=== PATIENT | male | born 1970 ===

== ENCOUNTER 2022-12-10 15:46 | Inpatient (IN) | payer OTHER ==
[~2022-12-10] VITALS: Ht 175.3 cm; Wt 101.1 kg
[2022-12-10 17:50] LABS: BASOPHILS ABSOLUTE AUTO 0.05 K/mm3 (0.00-0.23); BASOPHILS PERCENT AUTO 1 % (0-2); EOSINOPHILS ABSOLUTE AUTO 0.25 K/mm3 (0.00-0.68); EOSINOPHILS PERCENT AUTO 3 % (0-6); Hematocrit 48.2 % (37.0-53.0); Hemoglobin 16.8 g/dL (13.5-17.5); IMMATURE GRAN ABSOLUTE AUTO 0.03 K/mm3 (0.00-0.10); IMMATURE GRAN PERCENT AUTO 0 % (0-1); LYMPHOCYTES ABSOLUTE AUTO 1.87 K/mm3 (0.84-5.20); LYMPHOCYTES PERCENT AUTO 24 % (21-46); MONOCYTES ABSOLUTE AUTO 0.64 K/mm3 (0.16-1.47); MONOCYTES PERCENT AUTO 8 % (4-13); Mean Corpuscular HGB 31.1 pg (26.0-34.0); Mean Corpuscular HGB Conc 34.9 g/dL (31.5-36.5); Mean Corpuscular Volume 89 fL (80-100); Mean Platelet Volume 10.3 fL (9.1-12.4); NEUTROPHILS ABSOLUTE AUTO 5.03 K/mm3 (1.96-9.15); NEUTROPHILS PERCENT AUTO 64 % (41-73); Platelet Count 256 K/mm3 (150-400); RDW Coefficient Variation 12.9 % (11.7-14.2); RDW Standard Deviation 42.5 fL (35.1-46.3); Red Blood Cell Count 5.41 M/mm3 (4.30-5.90); White Blood Cell Count 7.87 K/mm3 (4.00-11.30)
[2022-12-10 18:16] LABS: Albumin, Blood 3.9 g/dL (3.4-5.0); Albumin/Globulin Ratio 0.9 (0.8-1.8); Bilirubin, Total 0.6 mg/dL (0.1-1.0); Bun/Creatinine Ratio 14.2 (12.0-20.0); Calcium, Blood 9.6 mg/dL (8.5-10.1); Creatinine, Blood 0.85 mg/dL (0.60-1.20); Globulin, Blood 4.2 g/dL (2.2-4.0); Potassium, Blood 4.5 mmol/L (3.5-5.5); Total Protein, Blood 8.1 g/dL (6.4-8.2)
[2022-12-10] MEDS ORDERED: IBUP800 PO (19:57)
[2022-12-10] MEDS ORDERED: SULFAMETHOXAZO1 EAC1 PO (19:58)
--- NOTE | 2022-12-10 21:13 | NUR ---
REPORT RECIEVED FROM KLAUDIA (INSPECTOR FINISHING) AND AWAITING PT T/F TO ROOM 311.
[2022-12-10 21:51] VITALS: BP 135/85
[2022-12-11 05:00] VITALS: BP 121/84
[2022-12-11 05:16] LABS: BASOPHILS ABSOLUTE AUTO 0.05 K/mm3 (0.00-0.23); BASOPHILS PERCENT AUTO 1 % (0-2); EOSINOPHILS ABSOLUTE AUTO 0.32 K/mm3 (0.00-0.68); EOSINOPHILS PERCENT AUTO 4 % (0-6); Hematocrit 43.7 % (37.0-53.0); Hemoglobin 15.4 g/dL (13.5-17.5); IMMATURE GRAN ABSOLUTE AUTO 0.04 K/mm3 (0.00-0.10); IMMATURE GRAN PERCENT AUTO 1 % (0-1); LYMPHOCYTES ABSOLUTE AUTO 1.98 K/mm3 (0.84-5.20); LYMPHOCYTES PERCENT AUTO 27 % (21-46); MONOCYTES ABSOLUTE AUTO 0.62 K/mm3 (0.16-1.47); MONOCYTES PERCENT AUTO 9 % (4-13); Mean Corpuscular HGB 31.3 pg (26.0-34.0); Mean Corpuscular HGB Conc 35.2 g/dL (31.5-36.5); Mean Corpuscular Volume 89 fL (80-100); NEUTROPHILS ABSOLUTE AUTO 4.21 K/mm3 (1.96-9.15); NEUTROPHILS PERCENT AUTO 58 % (41-73); Platelet Count 224 K/mm3 (150-400); RDW Coefficient Variation 12.7 % (11.7-14.2); RDW Standard Deviation 41.4 fL (35.1-46.3); Red Blood Cell Count 4.92 M/mm3 (4.30-5.90); White Blood Cell Count 7.22 K/mm3 (4.00-11.30)
--- NOTE | 2022-12-11 05:31 | NUR ---
T/F AND SUMMARY: PT T/F'D TO ROOM 311 AT 2140 VIA GURNEY AND HE SAFELY AMBULATED FROM GURNEY TO BED. 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 THIS RN ALSO USED Inspirato TRANSLATE TO COMMUNICATE WELL W/PT. HE WAS ORIENTED TO ROOM AND CALL SYSTEM, IS AWARE OF LIMITATIONS AND USES L.HEEL TOUCH DURING MOBILITY. HE'S A/OX4, SPECIFIES NEEDS AND USED URINAL AD MARY. ADVISED ADMIT FOR L.FOOT CELLULITIS AND NEED FOR ABX AND POSSIBLE I&D. CONSULT WAS MADE W/HIM AND VANCO AND CEFEPIME WERE RECIEVED IN ER. PT HAS OPEN SORE TO BOTTOM OF L.FOOT AT BASE OF GREAT TOE, APPROX 2CM IN DIAMETER W/SURROUNDING TISSUE EDEMA, BLOODY PURULENT EXUDATE OBSERVED. WOUND CLEANSED W/SKINTEGRITY, PHOTOS TAKENM NONADHERENT DX APPLIED THEN KERLEX AND LOY WRAP USED TO SECURE IN PLACE. SWELLING AND REDNESS EXTENDS TO TOP OF FOOT AND UP ANKLE. HE WAS MEDICATED W/TORADOL IV FOR TOLERABLE PAIN RELIEF AND DENIED FURTHER COMPLAINTS. NO ACUTE CHANGES, VSS/AFEBRILE. WCTM AND REPORT TO DAY RN.
[2022-12-11 05:45] LABS: Bun/Creatinine Ratio 14.5 (12.0-20.0); Calcium, Blood 9.1 mg/dL (8.5-10.1); Creatinine, Blood 0.97 mg/dL (0.60-1.20); Potassium, Blood 4.5 mmol/L (3.5-5.5)
[2022-12-11 07:33] VITALS: BP 117/72
--- NOTE | 2022-12-11 13:04 | NUR ---
Upon recieving a referral for spiritual care, I visited the patient. He is lying in bed and immediately explains about his foot. He explains that if he does not work he has no income and he is concerned about the medical bills. He says that his family is in [place], [place]. He has no support in [place]. He came to [place] for work but I could not understand who he said his employer was (due to language barriers, although patient does well with his Occitan, some things are more challenging to understand). Patient shares about his [employer] roya and, when asked, he agrees to having the [employer] [facility] [employer] perform communion. I also agrees to prayer, which I gladly provide. Patient responded well to therpaeutic listening, normalizing his experience and prayer. I will continue to remain available to patient.
[2022-12-11 14:43] VITALS: BP 118/83
--- NOTE | 2022-12-11 17:20 | NUR ---
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 HE IS EATING AND DRINKING WELL. DR. MERRITT SAW PT THIS MORNING AND REPORTED APPEARED IMPROVMENT AND CONTINUED ABX BUT NO PROCEDURE PLANNED AT THIS TIME. CULTURES SENT TO LAB. PRECISION INSTRUMENT MAKER CONSULTED, SHE REPORTED SUSPISION THAT THE PTS BOOTS MAY BE THE SOURCE OF THE WOUND. HE SLEPT INTERMITENTLY DURING THIS SHIFT. RECIEVING IV ABX. HIS BED IS IN THE LOW POSTION AND CALL LIGHT IS WITHIN REACH. PT IS INDEPENDENT IN THE ROOM
[2022-12-11 19:54] VITALS: BP 130/83
--- NOTE | 2022-12-12 04:12 | NUR ---
SHIFT SUMMARY; NO ACUTE CHANGES OVERNIGHT. THE PT HAS BEEN RESTING T/O THE NIGHT. THE PT DENIES ANY SOB, CHEST PAIN/PRESSURE OR N/V. THE PT ALSO DENIES ANY PAIN IN HIS FEET. THE PT IS AXO X4 AND INDEPENDENT IN THE ROOM. CURRENTLY THE PT IS SLEEPING IN BED WITH THE BED IN THE LOWEST POSITION AND THE CALL LIGHT AT BEDSIDE.
[2022-12-12 04:57] VITALS: BP 123/86
[2022-12-12 07:49] VITALS: BP 113/83
[2022-12-12 08:24] LABS: Vancomycin, Trough 12.8 ug/mL (5.0-10.0)
--- NOTE | 2022-12-12 10:14 | NUR ---
NURSE NOTE THIS RN HAS REVIEWED AND AGREES WITH STUDENT NURSE SHIFT ASSESSMENT
[2022-12-12] MEDS ORDERED: VISBIOME 112.51 EACH PO (11:18)
[2022-12-12] MEDS ORDERED: BACTRIM DS TAB1 EAC6 PO (11:21)
[2022-12-12] MEDS ORDERED: ACET325 PO (11:22)
--- NOTE | 2022-12-12 12:32 | NUR ---
DISCHARGE SUMMARY: PT DISCHARGED VIA WHEELCHAIR TO AWAITING [facility]. PT PROVIDED WITH DISCHARGE INSTRUCTIONS AND GIVEN TIME TO ASK QUESTIONS. PT VERBALIZES UNDERSTANDING. IV REMOVED, PT DRESSED IN PERSONAL CLOTHES, ALL BELONGINGS WITH PT.
--- NOTE | 2022-12-12 13:25 | NUR ---
SHIFT SUMMARY THIS RN AGREES WITH STUDENT NURSE DISCHARGE SUMMARY
== END 2022-12-12 13:11 | disposition home or self-care (01) | DRG 603 ==
LOC: ER 15:46 → MEDS 20:41
PROVIDERS: Physician Assistant; ADMIT Student in an Organized Health Care Education/Training Program
DX: L03.116 Cellulitis of left lower limb (principal); I10 Essential (primary) hypertension; B95.62 Methicillin resistant Staphylococcus aureus infection as the cause of diseases classified elsewhere
CPT/HCPCS: 36415; 71046; 73630; 80048; 80053; 80202; 83605; 85025; 87081; 96365; 96375; 99285-25; A9270; J0692; J1885; J3370; J7050